=== PATIENT | female | born 1935 | race Two or more races ===

== ENCOUNTER 2022-10-26 17:56 | Emergency (ER) | payer OTHER ==
[~2022-10-26] VITALS: Ht 160 cm; Wt 59.0 kg
[2022-10-26] MEDS ORDERED: TOPROL XL50 M1 PO (18:08)
[2022-10-26] MEDS ORDERED: ACID REDUCER20 M1 PO (18:08)
[2022-10-26] MEDS ORDERED: ZOLOFT20 MG/1 ML PO (18:09)
[2022-10-26] MEDS ORDERED: PEPCID AC10 MG PO (18:09)
[2022-10-26] MEDS ORDERED: HYDRODIURIL12.5 MG PO (18:09)
[2022-10-26] MEDS ORDERED: COZAAR25 MG PO (18:09)
[2022-10-26] MEDS ORDERED: PEPCID20 MG PO (21:49)
[2022-10-26] MEDS ORDERED: ZOFRAN8 MG PO (21:49)
[2022-10-26] MEDS ORDERED: TRAMADOL HCL50 MG PO (21:49)
== END 2022-10-26 22:02 | disposition home or self-care (01) ==
LOC: ER 17:56
DX: R10.13 Epigastric pain (principal); Z91.040 Latex allergy status; Z88.0 Allergy status to penicillin; Z91.018 Allergy to other foods; C56.9 Malignant neoplasm of unspecified ovary